=== PATIENT | female | born 1980 | race African-American/Black ===

== ENCOUNTER 2017-01-27 04:49 | Emergency (ER) | payer OTHER ==
--- NOTE | 2017-01-27 06:05 | ER Document Report ---
ED Medical Screen (RME) - General Chief Complaint: Dizziness Stated Complaint: BLOOD PRESSURE PROBLEMS Time Seen by Provider: 01/27/17 05:59 Mode of Arrival: Ambulatory Information source: Patient Notes: 36-year-old female presents to ED for tachycardia high blood pressure feelings of dizziness and hot flashes several times tonight while at work. She has a history of high blood pressure but this is the first time she had a tachycardia with dizziness. Blood pressure when seen in the emergency room was 143/90. She is a former smoker. Lungs clear states she has been told she has prediabetes and blood sugar runs about 160 I have greeted and performed a rapid initial assessment of this patient. A comprehensive ED assessment and evaluation of the patient, analysis of test results and completion of medical decision making process will be conducted by an additional ED providers. TRAVEL OUTSIDE OF THE [place] IN LAST 30 DAYS: No - Related Data Allergies/Adverse Reactions: No Known Allergies Allergy (Verified 09/23/14 16:14) Past Medical History - Past Medical History Cardiac Medical History: Reports: Hx Hypertension Renal/ Medical History: Denies: Hx Peritoneal Dialysis Past Surgical History: Reports: Hx Tubal Ligation Physical Exam - Vital signs Vitals: Temp Pulse Resp BP Pulse Ox 98.2 F 89 20 143/90 H 100 01/27/17 04:56 01/27/17 04:56 01/27/17 04:56 01/27/17 04:56 01/27/17 04:56 Course - Vital Signs Vital signs: Temp Pulse Resp BP Pulse Ox 98.2 F 89 20 143/90 H 100 01/27/17 04:56 01/27/17 04:56 01/27/17 04:56 01/27/17 04:56 01/27/17 04:56
[2017-01-27 06:34] LABS: ABSOLUTE LYMPHOCYTES (AUTO) 2.2 10^3/uL (0.5-4.7); ABSOLUTE MONOCYTES (AUTO) 0.6 10^3/uL (0.1-1.4); ABSOLUTE NEUT (AUTO) 7.2 10^3/uL (1.7-8.2); BASOPHILS % (AUTO) 0.4 % (0-2); EOSINOPHILS % (AUTO) 0.3 % (0-6); HEMATOCRIT 33.4 % (36.0-47.0); HEMOGLOBIN 10.8 g/dL (12.0-15.5); LYMPHOCYTES % (AUTO) 21.6 % (13-45); MEAN CORPUSCULAR HEMOGLOBIN 25.6 pg (27.0-33.4); MEAN CORPUSCULAR HGB CONC 32.3 g/dL (32.0-36.0); MEAN CORPUSCULAR VOLUME 79 fl (80-97); MONOCYTES % (AUTO) 6.2 % (3-13); RED BLOOD COUNT 4.21 10^6/uL (3.72-5.28); RED CELL DISTRIBUTION WIDTH 15.2 % (11.5-14.0); SEGMENTED NEUTROPHILS % (AUTO) 71.5 % (42-78)
[2017-01-27 06:52] LABS: ANION GAP 12 (5-19); BLOOD UREA NITROGEN 11 mg/dL (7-20); CALCIUM 8.8 mg/dL (8.4-10.2); CARBON DIOXIDE 26 mmol/L (22-30); CHLORIDE 101 mmol/L (98-107); CREATININE RESULT 0.79 mg/dL (0.52-1.25); GLUCOSE 117 mg/dL (75-110); MAGNESIUM 1.6 mg/dL (1.6-2.3); POTASSIUM 3.4 mmol/L (3.6-5.0)
[2017-01-27 06:56] LABS: APPEARANCE,URINE CLEAR; BILIRUBIN,URINE NEGATIVE (NEGATIVE); GLUCOSE, URINE NEGATIVE (NEGATIVE); KETONES,URINE NEGATIVE (NEGATIVE); LEUKOCYTE ESTERASE,URINE SMALL (NEGATIVE); NITRITE,URINE NEGATIVE (NEGATIVE); PROTEIN,URINE NEGATIVE (NEGATIVE); URINE SPECIFIC GRAVITY 1.001; UROBILINOGEN,URINE NEGATIVE mg/dL (<2.0)
--- NOTE | 2017-01-27 07:50 | EKG REPORT ---
SEVERITY:- ABNORMAL ECG - SINUS RHYTHM INFERIOR Q WAVES, PROBABLY NORMAL VARIATION NONSPECIFIC T ABNORMALITIES, ANTERIOR LEADS : Confirmed by: Jewel Suazo MD 27-Jan-2017 07:49:46
[2017-01-27] MEDS ORDERED: POTASSIUM CHLORIDE 10 MEQ TABLET.SA PO ONE (07:53)
--- NOTE | 2017-01-27 07:59 | ER Document Report ---
ED General - General Chief Complaint: Dizziness Stated Complaint: BLOOD PRESSURE PROBLEMS Time Seen by Provider: 01/27/17 05:59 Mode of Arrival: Ambulatory TRAVEL OUTSIDE OF THE [place] IN LAST 30 DAYS: No - HPI Patient complains to provider of: Dizziness feeling off Notes: Patient is coming in for evaluation of dizziness feeling all. Patient states most of her symptoms are occur if she standing up and ambulating. Patient denies any recent fevers chills nausea vomiting diarrhea. Patient denies any chest pain abdominal pain. Patient states she only drinks about 2 bottles of water a day. Patient denies any excessive heat exposure. - Related Data Allergies/Adverse Reactions: No Known Allergies Allergy (Verified 09/23/14 16:14) Past Medical History - General Information source: Patient - Social History Smoking Status: Never Smoker Chew tobacco use (# tins/day): No Frequency of alcohol use: None Drug Abuse: None Family History: None, Reviewed & Not Pertinent Patient has suicidal ideation: No Patient has homicidal ideation: No - Past Medical History Cardiac Medical History: Reports: Hx Hypertension Renal/ Medical History: Denies: Hx Peritoneal Dialysis Past Surgical History: Reports: Hx Section - x2, Hx Tubal Ligation - Immunizations Hx Diphtheria, Pertussis, Tetanus Vaccination: Yes Review of Systems - Review of Systems Constitutional: No symptoms reported EENT: No symptoms reported Cardiovascular: No symptoms reported Respiratory: No symptoms reported Gastrointestinal: No symptoms reported Genitourinary: No symptoms reported Female Genitourinary: No symptoms reported Musculoskeletal: No symptoms reported Skin: No symptoms reported Hematologic/Lymphatic: No symptoms reported Neurological/Psychological: Other - Feeling off -: Yes All other systems reviewed and negative Physical Exam - Vital signs Vitals: Temp Pulse Resp BP Pulse Ox 98.2 F 89 20 143/90 H 100 01/27/17 04:56 01/27/17 04:56 01/27/17 04:56 01/27/17 04:56 01/27/17 04:56 Interpretation: Normal - General General appearance: Appears well, Alert - HEENT Head: Normocephalic, Atraumatic Eyes: Normal Pupils: PERRL - Respiratory Respiratory status: No respiratory distress Chest status: Nontender Breath sounds: Normal Chest palpation: Normal - Cardiovascular Rhythm: Regular Heart sounds: Normal auscultation Murmur: No - Abdominal Inspection: Normal Distension: No distension Bowel sounds: Normal Tenderness: Nontender Organomegaly: No organomegaly - Back Back: Normal, Nontender - Extremities General upper extremity: Normal inspection, Nontender, Normal color, Normal ROM , Normal temperature General lower extremity: Normal inspection, Nontender, Normal color, Normal ROM , Normal temperature, Normal weight bearing. No: Sudheer's sign - Neurological Neuro grossly intact: Yes Cognition: Normal Orientation: AAOx4 [place] Coma Scale Eye Opening: Spontaneous [place] Coma Scale Verbal: Oriented [place] Coma Scale Motor: Obeys Commands [place] Coma Scale Total: 15 Speech: Normal Motor strength normal: LUE, RUE, LLE, RLE Sensory: Normal - Psychological Associated symptoms: Normal affect, Normal mood - Skin Skin Temperature: Warm Skin Moisture: Dry Skin Color: Normal Course - Re-evaluation Re-evalutation: 01/27/17 07:58 Lab work shows potassium 3.4 hours orally replaced. Orthostatics show increase in heart rate. More likely patient is suffering her symptoms from volume depletion encourage patient to replace orally patient states agreement with this plan requested to be discharged home - Vital Signs Vital signs: Temp Pulse Resp BP Pulse Ox 98.2 F 74 19 140/85 H 98 01/27/17 04:56 01/27/17 06:50 01/27/17 06:43 01/27/17 06:50 01/27/17 06:43 - Laboratory Result Diagrams: 01/27/17 06:20 01/27/17 06:20 Laboratory results interpreted by me: 01/27/17 01/27/17 01/27/17 06:20 06:20 06:44 Hgb 10.8 L Hct 33.4 L MCV 79 L MCH 25.6 L RDW 15.2 H Potassium 3.4 L Glucose 117 H Ur Leukocyte Esterase SMALL H Discharge - Discharge Clinical Impression: Dehydration Hypertension Qualifiers: Hypertension type: essential hypertension Qualified Code(s): I10 - Essential ( primary) hypertension Condition: Good Disposition: HOME, SELF-CARE Instructions: High Blood Pressure ([facility]), Dehydration ([facility]) Additional Instructions: Please follow-up with your primary care physician for further control of your blood pressure. Please make sure that you are drinking plenty water to stay hydrated as that you are vital signs of change we were performing orthostatics. I would recommend drinking water and Gatorade today. Stay out of the heat. Return if symptoms worsen Referrals: [facility] [Primary Care Provider] - Follow up in 3-5 days
[2017-01-27 08:02] VITALS: BP 116/60
== END 2017-01-27 08:10 | disposition home or self-care (01) ==
LOC: ER 04:49
DX: R42 Dizziness and giddiness (principal); I10 Essential (primary) hypertension; Z98.51 Tubal ligation status
CPT/HCPCS: 36415; 80048; 81001; 83735; 84702; 85025; 93005; 93010; 99284

== ENCOUNTER 2019-12-02 12:43 | Outpatient (CLI) | payer OTHER ==
[~2019-12-02 12:43] MED LIST: FERRIC CARBOXYMALTOSE 750 MG in NORMAL SALINE 250 ML IV PRN; NORMAL SALINE 250 ML IV PRN
[2019-12-02 12:46] VITALS: BP 156/111
== END 2019-12-02 14:00 | disposition home or self-care (01) ==
LOC: 5TH 12:43 → II 12:43
PROVIDERS: ATTEND Internal Medicine
DX: D50.8 Other iron deficiency anemias (principal); K90.9 Intestinal malabsorption, unspecified
CPT/HCPCS: 96365; J7050; J1439

== ENCOUNTER 2019-12-09 07:52 | Outpatient (CLI) | payer OTHER ==
[2019-12-09 08:40] VITALS: BP 152/111
== END 2019-12-09 08:44 | disposition home or self-care (01) ==
LOC: II 07:52 → 5TH 07:53 → II 08:44
PROVIDERS: ATTEND Internal Medicine
DX: D50.8 Other iron deficiency anemias (principal); K90.9 Intestinal malabsorption, unspecified
CPT/HCPCS: 96365; J7050; J1439